=== PATIENT | male | born 1960 | race Caucasian/White ===

== ENCOUNTER → 2016-10-16 | Outpatient (CLI) | payer BC | LOC: RAD 10:10 | PROVIDERS: ATTEND Family Medicine | DX: R05 Cough (principal); J45.901 Unspecified asthma with (acute) exacerbation | CPT/HCPCS: 71020 ==

== ENCOUNTER → 2016-10-16 | Outpatient (REF) | payer BC ==
[2016-10-16 11:41] LABS: ALBUMIN 4.6 g/dL (3.4-5.0); ANION GAP 14.9 MEQ/L (3-15)
[2016-10-16 12:44] LABS: BASOPHILS % (AUTO) 0 % (0-2); EOSINOPHILS # (AUTO) 0.2 10^3uL; EOSINOPHILS % (AUTO) 2 % (0-4); LYMPHOCYTES # (AUTO) 1.1 X10^3; MEAN CORPUSCULAR HGB CONC 35.1 g/dL (31.0-37.0); MEAN CORPUSCULAR VOLUME 91 FL (80-100); MEAN PLATELET VOLUME 9.6 FL (6.0-9.5); MONOCYTES # (AUTO) 0.8 X10^3; MONOCYTES % (AUTO) 13 % (3-11); NEUTROPHILS # (AUTO) 4.3 X10^3; NEUTROPHILS % (AUTO) 67 % (51-67); PLATELET COUNT 241 10^3uL (150-450); WHITE BLOOD COUNT 6.43 10^3uL (4.0-11.0)
== END ==
LOC: LAB 10:53
PROVIDERS: ATTEND Family Medicine
DX: R05 Cough (principal); R53.83 Other fatigue; J45.901 Unspecified asthma with (acute) exacerbation; Z86.2 Personal history of diseases of the blood and blood-forming organs and certain disorders involving the immune mechanism; E78.4 Other hyperlipidemia; Z12.5 Encounter for screening for malignant neoplasm of prostate; Z80.42 Family history of malignant neoplasm of prostate
CPT/HCPCS: 80053; 80061; 84153; 84443; 85025; 87486; 87581; 87633; 87798

== ENCOUNTER → 2016-10-22 | Outpatient (CLI) | payer BC | LOC: RT 13:02 | PROVIDERS: ATTEND Internal Medicine Rheumatology | DX: R05 Cough (principal); J45.901 Unspecified asthma with (acute) exacerbation; D86.2 Sarcoidosis of lung with sarcoidosis of lymph nodes | CPT/HCPCS: 94060; 94726; 94729 ==

== ENCOUNTER 2016-12-14 11:30 | Outpatient (RCR) | payer BC ==
--- NOTE | 2016-11-29 15:42 | PT/OT/ST INITIAL EVALUATION ---
[facility], [facility]. PHYSICAL/OCCUPATIONAL THERAPY [address] [place] [id number] PLAN OF CARE/ASSESSMENT FOR OUTPATIENT REHABILITATION (Complete for Initial Claims Only) 1. PATIENT'S NAME Veronika Arnold 2. ACC # [id number] 3. REFERRING PHYSICIAN Avery Parrish MD 4. PRIMARY DX M54.5 low back pain 5. SECONDARY DX Weakness and biomechanical dysfunction 6. ONSET DATE A couple of weekends ago 7. REFERRAL DATE 11/19/2016 8. SOC. DATE 11/26/2016 01:11 p.m. to 02:06 p.m. 9. CHARGES PT evaluation - 83620 low complexity Manual therapy - 43306 1 unit Therapeutic exercise - 15751 1 unit Iontophoresis - 96908 no charge 10. G. CODES 11. PRIOR LEVEL OF FUNCTION; PERTINENT HISTORY (Prior therapy results, reason for referral.) S: Prior to therapy the patient consented to today's evaluation and treatment. The patient is a 56-year-old male referred to physical therapy by Dr. Parrish to address functional limitations secondary to low back pain. Current complaint/Mechanism of injury: The patient reports that he does have a history of back pain. He reports that 15 years ago he "blew his back out". He was given steroids and physical therapy and it resolved. Five years ago he had an MRI and showed evidence of a disk injury and has issues at L4-L5 and S1. He did PT again about a year and a half ago. Currently he is having back pain due to an episode where he was picking up laundry off of the floor and he reached a little further out to grab an item of laundry and he had a sharp stabbing pain that currently radiates across his low back. No numbness or tingling reported and there is no pain into either lower extremity. The pain stays across his low back. Functional performance/Prior level of function: The patient reports that due to having a hiatal hernia several years ago and having some issues he tries to avoid lifting over 40 pounds. Otherwise, he does all his normal activities and self-care without issue prior to reinjuring his low back. 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 He does have two screens however it is set up in a fashion in which he does not have to rotate to see the screens. Therapy History: The patient has had several round of physical therapy in the past but none very recently. Pain rating: The patient rates the current pain level at 2/10, at worst can get up to 6/10 and describes the pain as a dull ache and a pressure across his low back. Obstacles to delivery of care: None noted Aggravating factors: Include bending forward. Relieving factors: Include Advil or Ibuprofen. Diagnostic testing: An MRI 5 years ago that showed evidence of a disk injury. He states that his issues are at L4-L5 and S1. Past medical history: Includes arthritis. Past surgical history: Includes a hiatal hernia. Current medications: Advil or Ibuprofen. He was prescribed Prednisone for his back injury however he has completed the Prednisone. He stopped taking Flexeril because he did not like the way it made him feel. Amlodipine. 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 Activity level: Listed as low. Health rating: Overall health rating is good. The patient's goal for physical therapy is to be pain free. 12. INITIAL ASSESSMENT/SAFETY PRECAUTIONS/MEDICAL COMPLICATIONS (Level of function at start of care. Be specific, use objective measures, list problems.) O: APPEARANCE, OBSERVATION AND GAIT: The patient presents to physical therapy with a diagnosis of low back pain. 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 Upon questioning the patient does not have saddle anesthesia and no bowel or bladder changes. The patient states that he is careful to not lift anything over 40 pounds due to his history of the hiatal hernia. In a prone position his left sacrum was elevated and it was corrected by a gentle overpressure to the left sacrum. No other pelvic asymmetries were noted. When patient moves into a lumbar range of motion he is slightly limited into flexion with some discomfort. PALPATION: The patient was tender to palpate on the right side of his low back. SPECIAL TESTS: None noted. RANGE OF MOTION/FLEXIBILITY: Active range of motion into lumbar flexion approximately 75% with slight discomfort, extension 100%. Bilateral side bending 100%. Bilateral rotation 75%. In a side lying position lumbar flexion and extension was assessed with passive movement moderately limited into flexion and significantly limited into extension. Unable to bring patient's hips into extension further from neutral without discomfort. Intervertebral motion performed in a side lying position for side bending and rotation of the lumbar spine no significant limitations or hypomobility noted. STRENGTH: Manual muscle testing of the hips: flexion bilateral 4-/5, abduction bilateral 4/5, extension bilateral 4/5. Knee flexion left 4/5, right 4/5. Knee extension left 4+/5, right 4+/5. Dorsiflexion bilateral 4-/5. Plantar flexion bilateral 4-/5. TODAY'S TREATMENT: Included the initial PT evaluation followed by manual therapy to correct a left elevated sacrum with gentle overpressure to the left sacrum followed by therapeutic exercise. The patient was given handouts for home exercise program as well as Iontophoresis with 2 mL of Dexamethasone applied to his right low back. 13. INITIAL POC: (Specify procedures, modalities, short and detention goals) A: The patient presents to physical therapy with the diagnosis low back pain. He presents with weakness and biomechanical dysfunction leading to altered mechanics in the lumbar spine which has probably led to imbalances and recurring back pain over the years as well as a possible disk injury years ago, according to a previous MRI. The patient will benefit from physical therapy in order to help decrease the irritation and pain in the low back as well as to restore proper motor control and activation of the segmental stabilizer muscles including multifidus and transverse abdominis in order to help the patient to return to all prior activities including bending forward and lifting items from the floor to avoid risk of reinjury. PROGNOSIS: The patient has a good prognosis for increased active range of motion with decreased pain with regular therapy attendance and compliance with prescribed home exercise program. CONTRAINDICATIONS, PRECAUTIONS AND OBSTACLES TO TREATMENT: No contraindications, precautions, or obstacles known at this time. GOALS: 1. The patient is to have a decrease in pain of the low back to less than or equal to 1/10 in 4 weeks in order to be able to bend forward without deviation. 2. The patient is to have an increase in manual muscle testing of the hips and core to 4+/5 in 4 weeks in order to improve the feed forward mechanism and strengthening of the core to decrease risk of reinjury. 3. The patient is to be independent with a progressive home exercise program. The prognosis and goals were discussed with the patient, as well as the expected outcome and possible risks. The patient agreed to undergo PT evaluation and further treatment. P: Plan to treat this patient 2 times a week for 4 weeks. Treatment to include modalities for pain and inflammation, manual therapy interventions, therapeutic exercise, active and passive range of motion, gait training, balance and proprioceptive training, neural reeducation and patient education and prescription of progressive home exercise program as tolerable. 14. SIGNATURE (or name of professional establishing POC) Safia Downing DPT 15. DATE POC ESTABLISHED 16. PHYSICIAN SIGNATURE ? ON FILE OR ENTER HERE: 17. DATE: I certify the need for these services furnished under this plan of care and if for partial hospitalization. 18. CERTIFICATION FROM THROUGH
[~2016-12-14 11:30] MED LIST: ALBU6.7H IH; AMLO10TA82 PO; FLUT16SP NS; ONDAN4ODT PO; ROSU5TAB PO; SERT25TA69 PO
== END 2017-01-07 13:19 | disposition home or self-care (01) ==
LOC: PT 11:30
PROVIDERS: ATTEND Family Medicine
DX: M54.5 Low back pain (principal)